=== PATIENT | male | born 1950 | race African-American/Black ===

== ENCOUNTER 2017-05-10 16:45 | Inpatient (IN) | payer OTHER, MEDICARE ==
[~2017-05-10] VITALS: Ht 185.4 cm; Wt 86.3 kg
[~2017-05-10 16:45] MED LIST: ACAR25TA PO; ASPI-231 PO; DOXA4TAB40 PO; LEVO50TA53 PO; LIS10T PO; METF-370 PO; SIMV-8 PO
[2017-05-10 17:43] LABS: Eosinophils # (auto) 0.1 uL; Hemoglobin 12.2 g/dL (13.5-17.5); Lymphocytes # (auto) 2.1 uL; Monocytes # (auto) 0.7 uL
[2017-05-10 17:44] LABS: Basophils # (auto) 0.1 uL; Basophils % (auto) 1.2 % (0.0-2.0); Eosinophils % (auto) 1.2 % (0.0-7.0); Hematocrit 38.6 % (41.0-53.0); Lymphocytes % (auto) 33.4 % (10.0-50.0); Mean Corpuscular Hemoglobin 25.3 pg (28.0-32.0); Mean Corpuscular Hgb Conc. 31.6 g/dL (32.0-36.0); Mean Platelet Volume 7.8 fL (6.9-10.8); Monocytes % (auto) 11.6 % (0.0-12.0); Neutrophils # (auto) 3.3 uL; Neutrophils % (auto) 52.6 % (37.0-80.0); Nucleated Red Blood Cells % 0.1 %; Platelet Count (auto) 187 10^3/uL (140-450); Red Cell Distribution Width 15.5 % (11.8-14.3); White Blood Cell 6.2 10^3/uL (4.4-10.8)
[2017-05-10 18:02] LABS: Albumin 4.1 g/dL (3.4-5.0); Alkaline Phosphatase 91 U/L (45-117); Anion Gap 7 (5-15); Aspartate Aminotransferase 23 U/L (15-37); BUN/Creatinine Ratio 9.7; Bilirubin, Total 0.4 mg/dL (0.2-1.0); Blood Urea Nitrogen 11 mg/dL (7-18); Calcium 9.3 mg/dL (8.5-10.1); Carbon Dioxide 26 mmol/L (21-32); Chloride 108 mmol/L (98-107); GFR African American 83 mL/min; GFR Non-African American 69 mL/min; Glucose 64 mg/dL (74-106); Potassium 3.9 mmol/L (3.5-5.1); Sodium 141 mmol/L (136-145); Total Protein 7.4 g/dL (6.4-8.2)
[2017-05-11] VITALS (9 sets, daily range): BP systolic 107–150; BP diastolic 69–95
[2017-05-11] MEDS ORDERED: DEXTROSE (50%) 50ML SYRG IV PRN (00:30)
[2017-05-11] MEDS ORDERED: ONDANSETRON HCL 4 MG/2 ML VIAL IV PRN (00:30)
[2017-05-11] MEDS ORDERED: HYDROcodone-ACET 5/325MG TAB PO PRN (00:30)
[2017-05-11] MEDS ORDERED: TEMAZEPAM 15 MG CAP PO PRN (00:30)
[2017-05-11] MEDS ORDERED: ACETAMINOPHEN 500 MG TAB PO PRN (00:30)
[2017-05-11 01:05] LABS: Cholesterol 152 mg/dL (< 200); HDL Cholesterol 54 mg/dL (40-59); LDL Cholesterol 90 mg/dL (< 100); Triglycerides 102 mg/dL (< 150)
[2017-05-11 01:51] LABS: Urine RBC None Seen /hpf (0 - 3)
[2017-05-11 02:03] LABS: Urine Bilirubin Negative (Negative); Urine Blood Negative /uL (Negative); Urine Color Yellow (Yellow); Urine Glucose Normal (Normal); Urine Ketone Negative (Negative); Urine Mucus FEW (None Seen); Urine Nitrite Negative (Negative); Urine Urobilinogen Normal (Negative); Urine pH 6.5 (5.0-8.0)
[2017-05-11] MEDS ORDERED: GABA-494 PO (02:49)
[2017-05-11] MEDS ORDERED: OMEP20CA74 PO (02:49)
[2017-05-11] MEDS ORDERED: ATOR20TA50 PO (02:49)
[2017-05-11] MEDS ORDERED: TAMS0.4C36 PO (02:49)
[2017-05-11] MEDS: ACCU-CHEK COMFORT CURVE STRIP VI SCH ×2 (06:06→11:30)
[2017-05-11] MEDS: InsuLIN REG 1unit/0.01ml Soln (100units/ml) SC SCH ×2 (06:06→11:30)
[2017-05-11] MEDS ORDERED: LEVOTHYROXINE SODIUM 50 MCG TAB PO SCH (07:00)
[2017-05-11 07:33] LABS: Basophils # (auto) 0 uL; Eosinophils # (auto) 0.1 uL; Eosinophils % (auto) 2.4 % (0.0-7.0); Hemoglobin 12.4 g/dL (13.5-17.5); Lymphocytes # (auto) 1.6 uL; Monocytes # (auto) 0.5 uL; Neutrophils # (auto) 2.7 uL
[2017-05-11 07:35] LABS: Hematocrit 38.5 % (41.0-53.0); Lymphocytes % (auto) 32.3 % (10.0-50.0); Mean Corpuscular Hemoglobin 25.4 pg (28.0-32.0); Mean Corpuscular Hgb Conc. 32.2 g/dL (32.0-36.0); Mean Corpuscular Volume 78.8 fL (80.0-100.0); Mean Platelet Volume 8.1 fL (6.9-10.8); Monocytes % (auto) 9.2 % (0.0-12.0); Neutrophils % (auto) 55.1 % (37.0-80.0); Nucleated Red Blood Cells % 0.2 %; Platelet Count (auto) 179 10^3/uL (140-450); Red Cell Distribution Width 15.6 % (11.8-14.3); White Blood Cell 4.9 10^3/uL (4.4-10.8)
[2017-05-11 07:51] LABS: BUN/Creatinine Ratio 8.5; Calcium 9.2 mg/dL (8.5-10.1); Potassium 3.4 mmol/L (3.5-5.1)
[2017-05-11] MEDS ORDERED: LISINOPRIL 10 MG TAB PO SCH (10:00)
[2017-05-11] MEDS ORDERED: ASPirin-EC 81 mg tab PO SCH (10:00)
[2017-05-11] MEDS ORDERED: POTASSIUM CHL 20 Meq TABLET PO ONE (12:00)
[2017-05-11] MEDS ORDERED: TAMSULOSIN HYDROCHLORIDE 0.4 MG CAP PO SCH (18:00)
[2017-05-11] MEDS ORDERED: ATORVASTATIN 20 MG TAB PO SCH (22:00)
== END 2017-05-11 16:45 | disposition home or self-care (01) | DRG 312 ==
LOC: EDBD 16:45 → ER 16:51 → OVERFLOW 16:52 → WEST WING 05-11 01:35
PROVIDERS: ADMIT Nurse Practitioner Family; ATTEND Internal Medicine Geriatric Medicine
DX: R55 Syncope and collapse (principal); I63.9 Cerebral infarction, unspecified; S09.90XA Unspecified injury of head, initial encounter; D64.9 Anemia, unspecified; E03.9 Hypothyroidism, unspecified; E11.9 Type 2 diabetes mellitus without complications; G45.9 Transient cerebral ischemic attack, unspecified; E78.5 Hyperlipidemia, unspecified; I10 Essential (primary) hypertension; N40.0 Benign prostatic hyperplasia without lower urinary tract symptoms; I25.10 Atherosclerotic heart disease of native coronary artery without angina pectoris; I67.2 Cerebral atherosclerosis; Z79.82 Long term (current) use of aspirin; Z79.84 Long term (current) use of oral hypoglycemic drugs; Z79.899 Other long term (current) drug therapy; Z82.49 Family history of ischemic heart disease and other diseases of the circulatory system; Z83.3 Family history of diabetes mellitus; X58.XXXA Exposure to other specified factors, initial encounter; Y93.89 Activity, other specified; Y92.89 Other specified places as the place of occurrence of the external cause; Y99.8 Other external cause status; Z91.81 History of falling
CPT/HCPCS: 36415; 70450; 71010; 80048; 80053; 80061; 81001; 82962; 83036; 83690; 84443; 84484; 85025; 93005; 93886; 94761

== ENCOUNTER 2017-06-27 07:18 | Inpatient (IN) | payer OTHER, MEDICARE ==
[~2017-06-27] VITALS: Ht 185.4 cm; Wt 87.5 kg
[~2017-06-27 07:18] MED LIST changes: +ATOR20TA50 PO; +GABA-494 PO; +OMEP20CA74 PO; -SIMV-8 PO; +TAMS0.4C36 PO
[2017-06-27 08:05] LABS: Basophils # (auto) 0.1 uL; Basophils % (auto) 1.4 % (0.0-2.0); Eosinophils # (auto) 0.1 uL; Eosinophils % (auto) 1.9 % (0.0-7.0); Hematocrit 42.5 % (41.0-53.0); Hemoglobin 13.4 g/dL (13.5-17.5); Lymphocytes # (auto) 1.8 uL; Lymphocytes % (auto) 28.7 % (10.0-50.0); Mean Corpuscular Hgb Conc. 31.5 g/dL (32.0-36.0); Mean Corpuscular Volume 79.4 fL (80.0-100.0); Mean Platelet Volume 7.9 fL (6.9-10.8); Monocytes # (auto) 0.6 uL; Monocytes % (auto) 8.9 % (0.0-12.0); Neutrophils # (auto) 3.7 uL; Neutrophils % (auto) 59.1 % (37.0-80.0); Nucleated Red Blood Cells % 0.1 %; Platelet Count (auto) 208 10^3/uL (140-450); Red Cell Distribution Width 15.4 % (11.8-14.3); White Blood Cell 6.2 10^3/uL (4.4-10.8)
[2017-06-27] MEDS ORDERED: SODIUM CHLORIDE 0.9% 1,000 ML IV ONE (08:21)
[2017-06-27] MEDS ORDERED: MORPHINE SULF INJ 2 MG/ML SYRINGE 1ML IV ONE ×2 (08:30→13:30)
[2017-06-27 08:43] LABS: Albumin 4.2 g/dL (3.4-5.0); BUN/Creatinine Ratio 8.6; Bilirubin, Total 0.2 mg/dL (0.2-1.0); Calcium 9.8 mg/dL (8.5-10.1); Magnesium 2.3 mg/dL (1.6-2.6); Total Protein 7.7 g/dL (6.4-8.2)
[2017-06-27 09:00] LABS: Urine RBC None Seen /hpf (0 - 3)
[2017-06-27 09:07] LABS: B-Type Natriuretic Peptide 17.8 pg/mL (0-100)
[2017-06-27 09:16] LABS: Partial Thromboplastin Time 23.6 sec (22.64-33.71); Prothrombin Time 10.9 sec (9.37-12.3)
[2017-06-27 09:25] LABS: Urine Bilirubin Negative (Negative); Urine Blood Negative /uL (Negative); Urine Color Yellow (Yellow); Urine Glucose Normal (Normal); Urine Ketone Negative (Negative); Urine Nitrite Negative (Negative); Urine Squamous Epithelial Cell FEW /hpf (<5); Urine Urobilinogen Normal (Negative); Urine pH 5.5 (5.0-8.0)
[2017-06-27] MEDS ORDERED: FUROSEMIDE 40 MG/4 ML VIAL IV ONE (13:30)
[2017-06-27] MEDS ORDERED: MECLIZINE HCL 25 MG TAB PO ONE (13:30)
[2017-06-27] MEDS ORDERED: LORazepam 0.5 MG TAB PO PRN (14:00)
[2017-06-27] MEDS ORDERED: ACETAMINOPHEN 500 MG TAB PO PRN (14:00)
[2017-06-27] MEDS ORDERED: DEXTROSE (50%) 50ML SYRG IV PRN (14:00)
[2017-06-27] MEDS ORDERED: HYDROcodone-ACET 5/325MG TAB PO PRN (14:00)
[2017-06-27] MEDS ORDERED: PROMETHAZINE HCL 25 MG/ML 1ML IV PRN (14:00)
[2017-06-27] MEDS ORDERED: MORPHINE SULF INJ 2 MG/ML SYRINGE 1ML IV PRN ×2 (14:00)
[2017-06-27] MEDS ORDERED: NITROGLYCERIN 0.4 MG SL TAB SL PRN (14:00)
[2017-06-27] MEDS: SODIUM CHLORIDE 0.9% 1,000 ML IV SCH (14:27)
[2017-06-27 16:21] VITALS: BP 130/96
[2017-06-27] MEDS ORDERED: IOHEXOL 350 MG/ML 100ML IJ ONE (16:49)
[2017-06-27] MEDS ORDERED: methylPREDNISolone SOD SUCC 125 MG/2 ML VL IV ONE (17:00)
[2017-06-27] MEDS ORDERED: diphenhdrAMINE HCL 50 MG/1 ML VL IV ONE (17:00)
[2017-06-27] MEDS: InsuLIN REG 1unit/0.01ml Soln (100units/ml) SC SCH ×2 (17:00→21:50)
[2017-06-27] MEDS ORDERED: IODIXANOL 320MG/ML 100ML BTL IV ONE (17:13)
[2017-06-27] MEDS: ACCU-CHEK COMFORT CURVE STRIP VI SCH ×2 (17:24→21:49)
[2017-06-27 17:46] VITALS: BP 130/96
[2017-06-27] MEDS: TAMSULOSIN HYDROCHLORIDE 0.4 MG CAP PO SCH (18:09)
[2017-06-27] MEDS ORDERED: CALCTAB25 PO (18:31)
[2017-06-27] MEDS ORDERED: GLIM2TAB33 PO (18:31)
[2017-06-27] MEDS ORDERED: MECL-87 PO (18:31)
[2017-06-27] MEDS ORDERED: HYDR12.56 PO (18:31)
[2017-06-27] MEDS: ATORVASTATIN 20 MG TAB PO SCH (21:48)
[2017-06-27] MEDS: DOXAZOSIN MESYL 2 MG TAB PO SCH (21:49)
[2017-06-27] MEDS: GABAPENTIN 100 MG CAP PO SCH (21:49)
[2017-06-27] MEDS: METOPROLOL TARTRATE 25 MG TAB PO SCH (21:49)
[2017-06-27] MEDS: TEMAZEPAM 15 MG CAP PO PRN (21:51)
[2017-06-27 22:00] VITALS: BP 107/68
[2017-06-28] MEDS: SODIUM CHLORIDE 0.9% 1,000 ML IV SCH ×2 (03:22→14:00)
[2017-06-28 05:42] VITALS: BP 105/70
[2017-06-28 06:01] LABS: Albumin 3.6 g/dL (3.4-5.0); BUN/Creatinine Ratio 9.8; Bilirubin, Total 0.3 mg/dL (0.2-1.0); Potassium 4.2 mmol/L (3.5-5.1); Total Protein 6.9 g/dL (6.4-8.2)
[2017-06-28] MEDS: InsuLIN REG 1unit/0.01ml Soln (100units/ml) SC SCH ×4 (06:24→22:50)
[2017-06-28] MEDS: LEVOTHYROXINE SODIUM 50 MCG TAB PO SCH (06:24)
[2017-06-28] MEDS: ACCU-CHEK COMFORT CURVE STRIP VI SCH ×4 (06:25→22:00)
[2017-06-28 06:50] LABS: Amylase 118 U/L (25-115)
[2017-06-28 08:00] VITALS: BP 129/86
[2017-06-28 08:30] VITALS: BP 129/86
[2017-06-28] MEDS: ASPirin-EC 81 mg tab PO SCH (10:40)
[2017-06-28] MEDS: PANTOPRAZOLE 40 MG TAB PO SCH (10:40)
[2017-06-28] MEDS: METOPROLOL TARTRATE 25 MG TAB PO SCH ×2 (10:41→22:38)
[2017-06-28] MEDS: LISINOPRIL 10 MG TAB PO SCH (10:41)
[2017-06-28] MEDS: GABAPENTIN 100 MG CAP PO SCH ×2 (10:42→22:38)
[2017-06-28] MEDS: NITROGLYCERIN 0.2MG/HR TOPICAL PATCH TD SCH (10:43)
[2017-06-28] MEDS: ENOXAPARIN SOD 40 MG/0.4 ML SYRINGE SC SCH (10:44)
[2017-06-28 12:30] VITALS: BP 138/81
[2017-06-28 17:10] VITALS: BP 100/64
[2017-06-28] MEDS: TAMSULOSIN HYDROCHLORIDE 0.4 MG CAP PO SCH (17:37)
[2017-06-28 22:00] VITALS: BP 99/73
[2017-06-28] MEDS: DOXAZOSIN MESYL 2 MG TAB PO SCH (22:00)
[2017-06-28] MEDS: ATORVASTATIN 20 MG TAB PO SCH (22:38)
[2017-06-28] MEDS: TEMAZEPAM 15 MG CAP PO PRN (22:39)
[2017-06-29 05:23] VITALS: BP 124/82
[2017-06-29] MEDS: SODIUM CHLORIDE 0.9% 1,000 ML IV SCH (05:48)
[2017-06-29] MEDS: LEVOTHYROXINE SODIUM 50 MCG TAB PO SCH (06:50)
[2017-06-29] MEDS: InsuLIN REG 1unit/0.01ml Soln (100units/ml) SC SCH ×3 (06:50→18:47)
[2017-06-29] MEDS: ACCU-CHEK COMFORT CURVE STRIP VI SCH ×3 (06:50→18:47)
[2017-06-29 09:00] VITALS: BP 149/82
[2017-06-29] MEDS: GABAPENTIN 100 MG CAP PO SCH (09:02)
[2017-06-29] MEDS: PANTOPRAZOLE 40 MG TAB PO SCH (09:02)
[2017-06-29] MEDS: METOPROLOL TARTRATE 25 MG TAB PO SCH ×2 (09:03→09:49)
[2017-06-29] MEDS: LISINOPRIL 10 MG TAB PO SCH (09:03)
[2017-06-29] MEDS: ENOXAPARIN SOD 40 MG/0.4 ML SYRINGE SC SCH (09:04)
[2017-06-29] MEDS: ASPirin-EC 81 mg tab PO SCH (09:04)
[2017-06-29] MEDS: NITROGLYCERIN 0.2MG/HR TOPICAL PATCH TD SCH (09:04)
[2017-06-29] MEDS ORDERED: IOHEXOL 350 MG/ML 100ML IJ ONE (10:03)
[2017-06-29] MEDS ORDERED: LIDOCAINE 2%HCL (LOCAL ANESTH.) INJ 20ML MDV ONE (10:03)
[2017-06-29] MEDS ORDERED: fentaNYL CITRATE 100 MCG/2 ML VL ONE (10:04)
[2017-06-29] MEDS ORDERED: ANGIOMAX 250 MG VIAL IV ONE (10:04)
[2017-06-29] MEDS ORDERED: SODIUM CHL 0.9% 0 ML ONE (10:05)
[2017-06-29] MEDS ORDERED: MIDAZOLAM HCL 1MG/1ML-2 ML VIAL ONE (10:05)
[2017-06-29] MEDS ORDERED: methylPREDNISolone SOD SUCC 125 MG/2 ML VL ONE (10:10)
[2017-06-29] MEDS ORDERED: diphenhdrAMINE HCL 50 MG/1 ML VL ONE (10:11)
[2017-06-29] MEDS ORDERED: diphenhdrAMINE HCL 50 MG/1 ML VL IV ONE (10:15)
[2017-06-29] MEDS ORDERED: methylPREDNISolone SOD SUCC 125 MG/2 ML VL IV ONE (10:15)
[2017-06-29] MEDS ORDERED: SODIUM CHLORIDE 0.9% 1,000 ML IV SCH (11:31)
[2017-06-29 13:00] VITALS: BP 155/88
[2017-06-29 17:05] VITALS: BP 126/83
[2017-06-29 18:08] VITALS: BP 126/83
[2017-06-29] MEDS: TAMSULOSIN HYDROCHLORIDE 0.4 MG CAP PO SCH (18:40)
== END 2017-06-29 18:50 | disposition home or self-care (01) | DRG 287 ==
LOC: ER 07:18 → EDBD 07:18 → TELE 07:19 → TELE-CENTR 17:39
PROVIDERS: ADMIT Internal Medicine; ATTEND Family Medicine
PROC: 4A023N7 Measurement of Cardiac Sampling and Pressure, Left Heart, Percutaneous Approach (ICD-10-PCS; principal; 2017-06-29)
PROC: B2111ZZ Fluoroscopy of Multiple Coronary Arteries using Low Osmolar Contrast (ICD-10-PCS; 2017-06-29)
PROC: B2151ZZ Fluoroscopy of Left Heart using Low Osmolar Contrast (ICD-10-PCS; 2017-06-29)
DX: R07.9 Chest pain, unspecified (principal); E03.9 Hypothyroidism, unspecified; I25.10 Atherosclerotic heart disease of native coronary artery without angina pectoris; E11.9 Type 2 diabetes mellitus without complications; E78.5 Hyperlipidemia, unspecified; I10 Essential (primary) hypertension; G47.00 Insomnia, unspecified; R79.1 Abnormal coagulation profile; F41.9 Anxiety disorder, unspecified; Z82.49 Family history of ischemic heart disease and other diseases of the circulatory system; Z83.3 Family history of diabetes mellitus; I25.2 Old myocardial infarction; Z86.73 Personal history of transient ischemic attack (TIA), and cerebral infarction without residual deficits; Z91.013 Allergy to seafood; Z79.899 Other long term (current) drug therapy; Z79.82 Long term (current) use of aspirin
CPT/HCPCS: 36415; 71020; 71260; 74177; 80053; 80061; 80307; 81001; 82150; 82550; 82962; 83036; 83690; 83735; 83880; 84443; 84484; 85025; 85379; 85610; 85652; 85730; 86141; 86850; 86900; 86901; 87493; 93005; 93306; 93458; 96361; 96374; 96375; 99152; 99153; J1815; J2250; Q9967

== ENCOUNTER 2017-11-09 09:55 | Emergency (ER) | payer OTHER, MEDICARE ==
[~2017-11-09] VITALS: Ht 185.4 cm; Wt 88.5 kg
[~2017-11-09 09:55] MED LIST changes: +CALCTAB25 PO; -GABA-494 PO; +GABA100C9 PO; +GLIM2TAB33 PO; +HYDR12.56 PO; +MECL-87 PO
[2017-11-09] MEDS ORDERED: cloNIDine HCL 0.1 MG TAB ONE (10:04)
[2017-11-09] MEDS ORDERED: cloNIDine HCL 0.1 MG TAB PO ONE (10:15)
[2017-11-09 10:33] LABS: Basophils # (auto) 0.1 uL; Eosinophils # (auto) 0.1 uL; Lymphocytes # (auto) 1.4 uL; Mean Corpuscular Volume 77.3 fL (80.0-100.0); Monocytes # (auto) 0.4 uL; White Blood Cell 4.2 10^3/uL (4.4-10.8)
[2017-11-09 10:35] LABS: Basophils % (auto) 1.3 % (0.0-2.0); Eosinophils % (auto) 1.6 % (0.0-7.0); Hematocrit 40.7 % (41.0-53.0); Hemoglobin 12.8 g/dL (13.5-17.5); Lymphocytes % (auto) 34.5 % (10.0-50.0); Mean Corpuscular Hemoglobin 24.4 pg (28.0-32.0); Mean Corpuscular Hgb Conc. 31.5 g/dL (32.0-36.0); Neutrophils # (auto) 2.2 uL; Neutrophils % (auto) 53.6 % (37.0-80.0); Platelet Count (auto) 181 10^3/uL (140-450); Red Blood Cells 5.26 10^6/uL (4.5-5.90); Red Cell Distribution Width 15.8 % (11.8-14.3)
[2017-11-09 10:57] LABS: Alanine Aminotransferase 37 U/L (16-61); Alkaline Phosphatase 106 U/L (45-117); Anion Gap 5 (5-15); Aspartate Aminotransferase 24 U/L (15-37); BUN/Creatinine Ratio 8.5; Bilirubin, Total 0.3 mg/dL (0.2-1.0); Blood Urea Nitrogen 10 mg/dL (7-18); Calcium 9.2 mg/dL (8.5-10.1); Carbon Dioxide 27 mmol/L (21-32); Chloride 107 mmol/L (98-107); GFR African American 80 mL/min; GFR Non-African American 66 mL/min; Glucose 163 mg/dL (74-106); Magnesium 2.4 mg/dL (1.6-2.6); Potassium 4.9 mmol/L (3.5-5.1); Sodium 139 mmol/L (136-145); Total Protein 7.8 g/dL (6.4-8.2)
[2017-11-09 11:08] VITALS: BP 134/95
== END 2017-11-09 11:57 | disposition home or self-care (01) ==
LOC: ER 09:55 → EDBD 09:55 → ER 11:57
DX: I10 Essential (primary) hypertension (principal); E11.9 Type 2 diabetes mellitus without complications; I48.91 Unspecified atrial fibrillation; E78.5 Hyperlipidemia, unspecified; I25.10 Atherosclerotic heart disease of native coronary artery without angina pectoris; Z86.73 Personal history of transient ischemic attack (TIA), and cerebral infarction without residual deficits; Z79.82 Long term (current) use of aspirin; Z91.013 Allergy to seafood
CPT/HCPCS: 36415; 80053; 83735; 84484; 85025; 93005

== ENCOUNTER 2017-11-22 14:28 | Inpatient (IN) | payer OTHER, MEDICARE ==
[~2017-11-22] VITALS: Ht 185.4 cm; Wt 90.0 kg
[2017-11-22] MEDS ORDERED: SODIUM CHLORIDE 0.9% 1,000 ML IV ONE (15:23)
[2017-11-22] MEDS ORDERED: ASPirin 81 mg TAB PO ONE (15:30)
[2017-11-22] MEDS ORDERED: METOCLOPRAMIDE HCL 5MG/ml INJ 2ml VIAL IV ONE (15:30)
[2017-11-22 15:51] LABS: Basophils # (auto) 0.1 uL; Monocytes # (auto) 0.7 uL
[2017-11-22 15:53] LABS: Basophils % (auto) 0.9 % (0.0-2.0); Eosinophils # (auto) 0.2 uL; Eosinophils % (auto) 2.8 % (0.0-7.0); Hematocrit 37.7 % (41.0-53.0); Hemoglobin 11.7 g/dL (13.5-17.5); Lymphocytes # (auto) 1.9 uL; Lymphocytes % (auto) 30.2 % (10.0-50.0); Mean Corpuscular Hemoglobin 24.3 pg (28.0-32.0); Mean Corpuscular Hgb Conc. 31.2 g/dL (32.0-36.0); Mean Corpuscular Volume 77.8 fL (80.0-100.0); Monocytes % (auto) 11.4 % (0.0-12.0); Neutrophils # (auto) 3.4 uL; Neutrophils % (auto) 54.7 % (37.0-80.0); Nucleated Red Blood Cells % 0.2 %; Platelet Count (auto) 201 10^3/uL (140-450); Red Blood Cells 4.84 10^6/uL (4.5-5.90); Red Cell Distribution Width 15.6 % (11.8-14.3); White Blood Cell 6.2 10^3/uL (4.4-10.8)
[2017-11-22 15:58] LABS: Albumin 3.8 g/dL (3.4-5.0); BUN/Creatinine Ratio 9.2; Calcium 8.7 mg/dL (8.5-10.1); Magnesium 1.9 mg/dL (1.6-2.6)
[2017-11-22 16:03] LABS: Bilirubin, Total 0.3 mg/dL (0.2-1.0); Total Protein 7.3 g/dL (6.4-8.2)
[2017-11-22 16:10] LABS: Partial Thromboplastin Time 23.2 sec (22.64-33.71); Prothrombin Time 10.9 sec (9.37-12.3)
[2017-11-22] MEDS: SODIUM CHLORIDE 0.9% 1,000 ML IV SCH (17:43)
[2017-11-22] MEDS ORDERED: PROMETHAZINE HCL 25 MG/ML 1ML IV PRN (17:45)
[2017-11-22] MEDS ORDERED: DEXTROSE (50%) 50ML SYRG IV PRN (17:45)
[2017-11-22] MEDS ORDERED: NITROGLYCERIN 0.4 MG SL TAB SL PRN (17:45)
[2017-11-22] MEDS ORDERED: ACETAMINOPHEN 500 MG TAB PO PRN (17:45)
[2017-11-22] MEDS ORDERED: LACTULOSE 20Gm/30ML SOLN PO PRN (17:45)
[2017-11-22] MEDS ORDERED: MORPHINE SULFATE 4 MG/ML SYR/VIAL IV PRN ×2 (17:45)
[2017-11-22] MEDS ORDERED: HYDROcodone-ACET 5/325MG TAB PO PRN (17:45)
[2017-11-22] MEDS ORDERED: TEMAZEPAM 15 MG CAP PO PRN (17:45)
[2017-11-22] MEDS ORDERED: LORazepam 0.5 MG TAB PO PRN (17:45)
[2017-11-22] MEDS: TAMSULOSIN HYDROCHLORIDE 0.4 MG CAP PO SCH (18:25)
[2017-11-22 18:28] LABS: Folate (Folic Acid) 16.74 ng/mL (5.38-24)
[2017-11-22 20:00] VITALS: BP 137/85
[2017-11-22 20:46] LABS: Urine Bacteria NONE SEEN /hpf (None Seen); Urine Blood Negative /uL (Negative); Urine Mucus FEW (None Seen); Urine Specific Gravity 1.029 (1.001-1.035); Urine WBC 1 /hpf (0 - 3)
[2017-11-22 20:47] LABS: Alcohol, Urine < 3.0 mg/dL (0-5); Amphetamine Screen, Urine NEGATIVE (NEGATIVE); Barbiturate Scree,Urine NEGATIVE (NEGATIVE); Benzodiazephine Screen, Urine NEGATIVE (NEGATIVE); Cannabinoid Screen, Urine NEGATIVE (NEGATIVE); Cocaine Screen, Urine NEGATIVE (NEGATIVE); Opiate Scree,Urine NEGATIVE (NEGATIVE); Phencyclidine Screen, Urine NEGATIVE (NEGATIVE)
[2017-11-22] MEDS: CALCIUM W/VIT D (600MG/400IU) TAB PO SCH (21:28)
[2017-11-22] MEDS: MECLIZINE HCL 25 MG TAB PO SCH (21:28)
[2017-11-22] MEDS: GABAPENTIN 100 MG CAP PO SCH (21:28)
[2017-11-22] MEDS: METOPROLOL TARTRATE 25 MG TAB PO SCH (21:29)
[2017-11-22] MEDS: ACCU-CHEK COMFORT CURVE STRIP VI SCH (21:37)
[2017-11-22] MEDS: InsuLIN REG 1unit/0.01ml Soln (100units/ml) SC SCH (21:37)
[2017-11-22 21:38] VITALS: BP 137/85
[2017-11-22] MEDS ORDERED: ATORVASTATIN 20 MG TAB PO SCH (22:00)
[2017-11-22 23:03] VITALS: BP 137/85
[2017-11-23 05:10] VITALS: BP 110/83
[2017-11-23] MEDS: MECLIZINE HCL 25 MG TAB PO SCH ×2 (06:10→15:56)
[2017-11-23] MEDS: ACCU-CHEK COMFORT CURVE STRIP VI SCH ×3 (06:11→17:00)
[2017-11-23] MEDS: InsuLIN REG 1unit/0.01ml Soln (100units/ml) SC SCH ×3 (06:11→17:00)
[2017-11-23 06:13] LABS: Eosinophils # (auto) 0.1 uL; Eosinophils % (auto) 2.4 % (0.0-7.0); Hemoglobin 10.9 g/dL (13.5-17.5); Lymphocytes # (auto) 1.5 uL; Neutrophils % (auto) 57.3 % (37.0-80.0)
[2017-11-23 06:19] LABS: Basophils # (auto) 0 uL; Basophils % (auto) 0.9 % (0.0-2.0); Hematocrit 34.3 % (41.0-53.0); Lymphocytes % (auto) 27.4 % (10.0-50.0); Mean Corpuscular Hemoglobin 24.6 pg (28.0-32.0); Mean Corpuscular Hgb Conc. 31.9 g/dL (32.0-36.0); Mean Corpuscular Volume 77.1 fL (80.0-100.0); Monocytes # (auto) 0.7 uL; Neutrophils # (auto) 3.1 uL; Nucleated Red Blood Cells % 0.1 %; Platelet Count (auto) 173 10^3/uL (140-450); Red Blood Cells 4.44 10^6/uL (4.5-5.90); Red Cell Distribution Width 15.5 % (11.8-14.3); White Blood Cell 5.5 10^3/uL (4.4-10.8)
[2017-11-23 06:46] LABS: Albumin 3.4 g/dL (3.4-5.0); BUN/Creatinine Ratio 8.3; Bilirubin, Total 0.4 mg/dL (0.2-1.0); Calcium 8.6 mg/dL (8.5-10.1); Potassium 4.2 mmol/L (3.5-5.1); Total Protein 6.3 g/dL (6.4-8.2)
[2017-11-23] MEDS ORDERED: LEVOTHYROXINE SODIUM 50 MCG TAB PO SCH (07:00)
[2017-11-23] MEDS ORDERED: GLIMEPIRIDE 2 MG TAB PO SCH (08:00)
[2017-11-23 09:00] VITALS: BP 128/86
[2017-11-23] MEDS ORDERED: ENOXAPARIN SOD 40 MG/0.4 ML SYRINGE SC SCH (10:00)
[2017-11-23] MEDS ORDERED: HCTZ 25 MG TAB PO SCH (10:00)
[2017-11-23] MEDS ORDERED: PANTOPRAZOLE 40 MG TAB PO SCH (10:00)
[2017-11-23] MEDS: SODIUM CHLORIDE 0.9% 1,000 ML IV SCH (10:00)
[2017-11-23] MEDS ORDERED: ASPirin 81 mg TAB PO SCH (10:00)
[2017-11-23] MEDS ORDERED: LISINOPRIL 10 MG TAB PO SCH (10:00)
[2017-11-23] MEDS ORDERED: NITROGLYCERIN 0.2MG/HR TOPICAL PATCH TD SCH (10:00)
[2017-11-23] MEDS: GABAPENTIN 100 MG CAP PO SCH (10:01)
[2017-11-23] MEDS: METOPROLOL TARTRATE 25 MG TAB PO SCH (10:01)
[2017-11-23] MEDS: CALCIUM W/VIT D (600MG/400IU) TAB PO SCH (10:02)
[2017-11-23] MEDS ORDERED: CLOPIDOGREL BISULFATE 75 MG TAB PO SCH (11:15)
[2017-11-23 13:00] VITALS: BP 130/84
[2017-11-23 16:36] VITALS: BP 130/84
[2017-11-23 17:00] VITALS: BP 139/102
[2017-11-23] MEDS: TAMSULOSIN HYDROCHLORIDE 0.4 MG CAP PO SCH (18:07)
== END 2017-11-23 19:30 | disposition home or self-care (01) | DRG 312 ==
LOC: EDBD 14:28 → ER 14:28 → TELE 14:29 → TELE-CENTR 19:35
PROVIDERS: ADMIT Internal Medicine; ATTEND Internal Medicine
DX: R55 Syncope and collapse (principal); R56.9 Unspecified convulsions; I48.91 Unspecified atrial fibrillation; G45.9 Transient cerebral ischemic attack, unspecified; D63.8 Anemia in other chronic diseases classified elsewhere; E11.9 Type 2 diabetes mellitus without complications; E03.9 Hypothyroidism, unspecified; I25.10 Atherosclerotic heart disease of native coronary artery without angina pectoris; E78.5 Hyperlipidemia, unspecified; R07.9 Chest pain, unspecified; K59.00 Constipation, unspecified; G47.00 Insomnia, unspecified; E66.3 Overweight; F41.9 Anxiety disorder, unspecified; I10 Essential (primary) hypertension; N40.0 Benign prostatic hyperplasia without lower urinary tract symptoms; I25.2 Old myocardial infarction; Z82.49 Family history of ischemic heart disease and other diseases of the circulatory system; Z83.3 Family history of diabetes mellitus; Z95.5 Presence of coronary angioplasty implant and graft; Z68.26 Body mass index [BMI] 26.0-26.9, adult; Z91.013 Allergy to seafood; Z79.899 Other long term (current) drug therapy; Z80.8 Family history of malignant neoplasm of other organs or systems
CPT/HCPCS: 36415; 71045; 80053; 80061; 80307; 81001; 82550; 82607; 82746; 82962; 83036; 83735; 83880; 84443; 84484; 85025; 85379; 85610; 85652; 85730; 86141; 87081; 93005; 93306; 93886; 94761; 96374; J1815